=== PATIENT | male | born 1990 | race Caucasian/White ===

== ENCOUNTER 2019-08-18 20:44 | Emergency (ER) | payer OTHER ==
[2019-08-18 20:54] VITALS: BP 167/83
[2019-08-18] MEDS ORDERED: NEOMYCIN/POLYMYX/HC OTIC DROPS RIGHTEAR STA (20:57)
--- NOTE | 2019-08-18 21:00 | ED Physician Documentation ---
PD HPI HEENT - Stated complaint Stated Complaint: R EAR PX - Chief complaint Chief Complaint: Heent - History obtained from History obtained from: Patient - History of Present Illness Timing - onset: Other (1 week of right ear pain with muffled hearing. No congestion or respiratory symptoms.) Review of Systems Constitutional: reports: Reviewed and negative Nose: reports: Reviewed and negative Throat: reports: Reviewed and negative PD PAST MEDICAL HISTORY - Present Medications Home Medications: Ambulatory Orders Medication Instructions Recorded Confirmed Neomycin/Polymyx/Hc Otic Drops 4 drops OT TID #1 bottle 08/18/19 [Cortisporin Ear Susp] - Allergies Allergies/Adverse Reactions: Allergies Allergy/AdvReac Type Severity Reaction Status Date / Time acetaminophen [From [facility]] Allergy Hives Verified 08/18/19 20:53 hydrocodone [From [facility]] Allergy Hives Verified 08/18/19 20:53 oxycodone Allergy Hives Verified 08/18/19 20:53 PD ED PE NORMAL - Vitals Vital signs reviewed: Yes - General General: Alert and oriented X 3, No acute distress - HEENT HEENT: Other (Right external otitis, nonocclusive) - Neck Neck: Supple, no meningeal sign, No bony TTP - Derm Derm: No rash - Neuro Neuro: Alert and oriented X 3, Normal speech - Psych Psych: Normal mood, Normal affect Results - Vitals Vitals: Vital Signs - 24 hr 08/18/19 20:50 Temperature 36.7 C Heart Rate 56 L Respiratory 16 Rate Blood Pressure 167/83 H O2 Saturation 100 Oxygen O2 Source Room air Departure - Departure Disposition: 01 Home, Self Care Clinical Impression: External otitis of right ear Condition: Good Record reviewed to determine appropriate education?: Yes Instructions: ED Otitis Externa Ch Prescriptions: Neomycin/Polymyx/Hc Otic Drops [Cortisporin Ear Susp] 4 drops OT TID #1 bottle Comments: Call your doctor to arrange a follow-up appointment, make the next available appointment. In the interim, return anytime if worse or if new symptoms develop.
== END 2019-08-18 21:08 | disposition home or self-care (01) ==
LOC: ED 20:44
DX: H60.91 Unspecified otitis externa, right ear (principal)
CPT/HCPCS: 99282; 99283; A9270